=== PATIENT | male | born 1990 | race African-American/Black ===

== ENCOUNTER 2018-08-30 20:24 | Emergency (ER) | payer BC ==
--- NOTE | 2018-08-30 20:45 | EDM.PDOC ---
ED HPI GENERAL MEDICAL PROBLEM - General Chief Complaint: Lower Extremity Injury/Pain Stated Complaint: PT HURT LT FOOT Time Seen by Provider: 08/30/18 20:45 Source of Information: Reports: Patient History Limitations: Reports: No Limitations - History of Present Illness INITIAL COMMENTS - FREE TEXT/NARRATIVE: HISTORY AND PHYSICAL: History of present illness: Patient is a 28-year-old male here with complaint of left toe and foot pain. He states it started bothering him 3 days ago, denies injury or trauma. Painful to walk on. Denies fevers, chills, nausea, vomiting. No history of gout. Reports history of hypertension and does take hydrochlorothiazide. Review of systems: As per history of present illness and below otherwise all systems reviewed and negative. Past medical history: As per history of present illness and as reviewed below otherwise noncontributory. Surgical history: As per history of present illness and as reviewed below otherwise noncontributory. Social history: No reported history of drug or alcohol abuse. Family history: As per history of present illness and as reviewed below otherwise noncontributory. Physical exam: General: Patient sitting comfortably in no acute distress and nontoxic appearing HEENT: Atraumatic, normocephalic, pupils reactive, negative for conjunctival pallor or scleral icterus, mucous membranes moist, throat clear, neck supple, nontender, trachea midline. No meningeal signs. Lungs: Clear to auscultation, breath sounds equal bilaterally, chest nontender. Heart: S1S2, regular, negative for clicks, rubs, or overt murmur. Abdomen: Soft, nondistended, nontender. Negative for masses or hepatosplenomegaly. Negative for costovertebral tenderness. Pelvis: Stable nontender. Genitourinary: Deferred. Rectal: Deferred. Extremities: There is no erythema, warmth or swelling of the toe or foot. Minimal tenderness to palpation of the left great toe into left 1st metatarsal. Atraumatic, negative for cords or calf pain. Neurovascular unremarkable. Neuro: Awake, alert, oriented. Cranial nerves II through XII unremarkable. Cerebellum unremarkable. Motor and sensory unremarkable throughout. Exam nonfocal. Notes: Diagnostics: x-ray foot Therapeutics: None Prescriptions: Indomethacin Impression: Left foot pain Plan: 1. Take medication as instructed 2. Follow up with primary care provider 3. Return to ED as needed as discussed Definitive disposition and diagnosis as appropriate pending reevaluation and review of above. Left Foot Pain Score (Numeric/FACES): 10 - Related Data Allergies Allergy/AdvReac Type Severity Reaction Status Date / Time No Known Allergies Allergy Verified 08/30/18 20:36 Home Meds: Home Meds Cholecalciferol (Vitamin D3) [Vitamin D] 5,000 units PO DAILY 08/30/18 [History] Diclofenac Sodium [Diclofono] 2.5 gm TP ASDIRECTED 08/30/18 [History] Hydrochlorothiazide [Microzide] 12.5 mg PO DAILY 08/30/18 [History] Indomethacin [Indocin] 50 mg PO TID #15 cap 08/30/18 [Rx] amLODIPine [Norvasc] 2.5 mg PO DAILY 08/30/18 [History] Review of Systems - Review of Systems Review Of Systems: ROS reveals no pertinent complaints other than HPI. ED EXAM, GENERAL - Physical Exam Exam: See Below (see dictation) Course - Vital Signs Last Recorded V/S: Last Vital Signs Temp 98.2 F 08/30/18 20:39 Pulse 99 08/30/18 20:39 Resp 16 08/30/18 20:39 BP 138/93 H 08/30/18 20:39 Pulse Ox 97 08/30/18 20:39 - Orders/Labs/Meds Orders: Active Orders 24 hr Category Date Time Status Foot 2V Lt [CR] Stat Exams 08/30/18 20:55 Taken Departure - Departure Time of Disposition: 21:36 Disposition: Home, Self-Care 01 Condition: Good Clinical Impression: Left foot pain - Discharge Information Prescriptions: Indomethacin [Indocin] 50 mg PO TID #15 cap Referrals: PCP,None [Primary Care Provider] - Forms: ED Department Discharge Additional Instructions: The following information is given to patients seen in the emergency department who are being discharged to home. This information is to outline your options for follow-up care. We provide all patients seen in our emergency department with a follow-up referral. The need for follow-up, as well as the timing and circumstances, are variable depending upon the specifics of your emergency department visit. If you don't have a primary care physician on staff, we will provide you with a referral. We always advise you to contact your personal physician following an emergency department visit to inform them of the circumstance of the visit and for follow-up with them and/or the need for any referrals to a consulting specialist. The emergency department will also refer you to a specialist when appropriate. This referral assures that you have the opportunity for follow-up care with a specialist. All of these measure are taken in an effort to provide you with optimal care, which includes your follow-up. Under all circumstances we always encourage you to contact your private physician who remains a resource for coordinating your care. When calling for follow-up care, please make the office aware that this follow-up is from your recent emergency room visit. If for any reason you are refused follow-up, please contact the [facility] Emergency Department at and asked to speak to the emergency department charge nurse. [facility] [address] [place] [address] [id number] [phone] 1. Take medication as instructed 2. Follow up with primary care provider 3. Return to ED as needed as discussed - My Orders Last 24 Hours: My Active Orders 08/30/18 20:55 Foot 2V Lt [CR] Stat - Assessment/Plan Last 24 Hours: My Active Orders 08/30/18 20:55 Foot 2V Lt [CR] Stat
--- NOTE | 2018-08-30 21:37 | CR ---
INDICATION: Pain. TECHNIQUE: Two views left foot. FINDINGS: No fracture or dislocation in left foot. Mild hallux valgus deformity. Mild narrowing of the left 1st MTP joint. No acute fracture or dislocation left foot. Mild soft tissue swelling left foot. Remainder negative. Dictated by Jason Menard MD @ Aug 30 2018 9:35PM Signed by Dr. Jason Menard @ Aug 30 2018 9:35PM
== END 2018-08-30 21:45 | disposition home or self-care (01) ==
LOC: MW.ED 20:24
DX: M79.672 Pain in left foot (principal); Z79.899 Other long term (current) drug therapy
CPT/HCPCS: 73620-26-LT; 73620-LT; 99283